=== PATIENT | female | born 1980 | race Caucasian/White ===

== ENCOUNTER 2016-07-09 10:49 | Emergency (ER) | payer OTHER ==
[~2016-07-09] VITALS: Ht 165.1 cm; Wt 84.8 kg
--- NOTE | 2016-07-09 10:50 | NUR ---
Manas redding in EDM - 07/09/16 at 1102 by WESLY Pt placed to ER bed and to norma. Pt report given to JITENDRA Ray.
[2016-07-09 10:56] VITALS: BP 136/88; PULSE 89; RESP 20; TEMP 98.2; O2SAT 100
--- NOTE | 2016-07-09 10:56 | NUR ---
Pt placed to ER bed 07 and to gown. Pt report given to JITENDRA Ray.
--- NOTE | 2016-07-09 10:58 | NUR ---
Dr. Veronica at bedside to assess pt.
--- NOTE | 2016-07-09 11:00 | NUR ---
Pt c/o vag bleed noticed half an hour ago, red blood in toilet and on toilet paper. 10 weeks , G5, P2. 1 miscarriage, 1 . Denies abd pain or cramping. Hx gestational diabetes. Blood sugars run under 120 per pt.
[2016-07-09 11:14] LABS: BILIRUBIN,URINE NEGATIVE (NEGATIVE); BLOOD, URINE 1+ (NEGATIVE); CLARITY/URINE CLEAR (CLEAR); COLOR,URINE YELLOW (YELLOW); GLUCOSE,URINE NEGATIVE (NEGATIVE); KETONES,URINE NEGATIVE (NEGATIVE); LEUKOCYTE ESTERASE ,URINE NEGATIVE (NEGATIVE); NITRITE, URINE NEGATIVE (NEGATIVE); PH,URINE 6.5 (5.0-8.0); PROTEIN URINE NEGATIVE (NEGATIVE); UROBILINOGEN,URINE 0.2 (0.2-1.0)
--- NOTE | 2016-07-09 11:16 | NUR ---
Off unit for ultra sound ambulatory with steady gait accompanied by tech
[2016-07-09 11:18] LABS: BACTERIA,URINE FEW /HPF (None Seen); MUCUS,URINE None Seen /LPF (None Seen); RBC,URINE 0-3 /HPF (0-3); WBC,URINE 0-3 /HPF (0-3)
[2016-07-09 11:29] LABS: BASOPHILS % (AUTO) 0.1 % (0.0-2.0); EOSINOPHILS # (AUTO) 0.2 K/uL (0.0-0.4); EOSINOPHILS % (AUTO) 2.2 % (0.0-4.0); HEMATOCRIT 37.8 % (36-48); HEMOGLOBIN 12.8 g/dL (12.0-16.0); LYMPHOCYTES # (AUTO) 2.2 K/uL (1.0-5.5); LYMPHOCYTES % (AUTO) 23.8 % (20.5-51.5); MEAN CORPUSCULAR HEMOGLOBIN 27 pg (27-31); MEAN CORPUSCULAR HGB CONC 34 % (32-36); MEAN CORPUSCULAR VOLUME 79 fL (79.0-98.0); MONOCYTES # (AUTO) 0.7 K/uL (0.0-1.0); MONOCYTES % (AUTO) 7.2 % (1.7-9.3); NEUTROPHILS % (AUTO) 66.7 % (40.0-70.0); PLATELET COUNT (AUTO) 249 K/uL (130-430); RED CELL DISTRIBUTION WIDTH 12.5 % (9.0-15.0); WHITE BLOOD COUNT (AUTO) 9.1 K/uL (4.8-10.8)
[2016-07-09 11:48] LABS: CALCIUM 9.5 mg/dL (8.4-11.0); CREATININE 0.65 mg/dL (0.55-1.30); POTASSIUM 3.5 mmol/L (3.5-5.1)
[2016-07-09 12:30] VITALS: BP 101/43; PULSE 80; RESP 18; TEMP 98.2; O2SAT 99
--- NOTE | 2016-07-09 12:30 | NUR ---
Patient given written and verbal discharge instructions and verbalizes understanding. ER MD discussed with patient the results and treatment provided. Given copies of tests performed in ER. Patient in stable condition. ID arm band removed. No Rx given. Patient educated on pain management and to follow up with PMD and OBGYN. Pain Scale 0/10. Opportunity for questions provided and answered.
== END 2016-07-09 12:30 | disposition home or self-care (01) ==
LOC: SED 10:49
DX: O02.1 Missed abortion (principal); O21.9 Vomiting of pregnancy, unspecified; Z3A.08 8 weeks gestation of pregnancy
CPT/HCPCS: 36415; 76801; 76817; 80048; 81000-TC; 81025; 84702-TC; 85025; 86901; 99285

== ENCOUNTER 2017-12-16 05:50 | Inpatient (IN) | payer OTHER ==
[~2017-12-16] VITALS: Ht 165.1 cm; Wt 100.2 kg
[2017-12-16] MEDS ORDERED: CEFAZOLIN 2 GM IVPB PREMIX 50 ML IV SCH (06:15)
[2017-12-16] MEDS ORDERED: CEFAZOLIN 2 GM IVPB PREMIX 0 ML IV ONE (06:18)
[2017-12-16 07:13] LABS: BASOPHILS % (AUTO) 0.4 % (0.0-2.0); EOSINOPHILS # (AUTO) 0.2 K/uL (0.0-0.4); EOSINOPHILS % (AUTO) 1.5 % (0.0-4.0); HEMATOCRIT 37.6 % (36-48); HEMOGLOBIN 12.9 g/dL (12.0-16.0); LYMPHOCYTES # (AUTO) 1.9 K/uL (1.0-5.5); MEAN CORPUSCULAR HEMOGLOBIN 27 pg (27-31); MEAN CORPUSCULAR HGB CONC 34 % (32-36); MEAN CORPUSCULAR VOLUME 80 fL (79.0-98.0); MONOCYTES # (AUTO) 0.6 K/uL (0.0-1.0); NEUTROPHILS # (AUTO) 7.6 K/uL (1.8-7.7); NEUTROPHILS % (AUTO) 74.1 % (40.0-70.0); PLATELET COUNT (AUTO) 265 K/uL (130-430); RED BLOOD CELL COUNT(AUTO) 4.71 MIL/uL (4.2-6.2); RED CELL DISTRIBUTION WIDTH 12.5 % (9.0-15.0); WHITE BLOOD COUNT (AUTO) 10.3 K/uL (4.8-10.8)
[2017-12-16] MEDS ORDERED: KETOROLAC TROMETHAMINE 60 MG/2 ML VIAL IM PRN (08:15)
[2017-12-16] MEDS ORDERED: fentaNYL CITRATE/PF 100 MCG/2 ML AMP IVP PRN ×2 (08:15)
[2017-12-16] MEDS ORDERED: MORPHINE SULFATE 10MG/10ML PF AMP SP SCH (08:15)
[2017-12-16] MEDS ORDERED: ONDANSETRON HCL 4 MG/2 ML VIAL IVP PRN ×2 (08:15)
[2017-12-16] MEDS ORDERED: DIPHENHYDRAMINE INJ 50 MG/ML VIAL IVP PRN (08:15)
[2017-12-16] MEDS ORDERED: KETOROLAC TROMETHAMINE 30 MG VIAL IVP PRN (08:15)
[2017-12-16] MEDS ORDERED: NALBUPHINE HCL 10 MG/ML AMP IVP PRN (08:15)
[2017-12-16] MEDS ORDERED: NALOXONE HCL 0.4 MG/ML AMP (NARCAN) IVP PRN ×2 (08:15)
[2017-12-16] MEDS ORDERED: OXYTOCIN/0.9 % SODIUM CHLORIDE 1,000 ML IV ONE ×4 (08:51→21:14)
[2017-12-16] MEDS ORDERED: LR 1,000 ML IV SCH ×2 (08:51→21:14)
[2017-12-16 08:55] VITALS: BP_SYST 106
[2017-12-16] MEDS ORDERED: DIPH-TET-PERTUS Vaccine 0.5 ML VIAL (ADACEL) I.M. PRN (09:00)
[2017-12-16] MEDS ORDERED: BUPIVACAINE /DEX PF 0.75% SPINAL 2 ML AMP INJ ONE (09:00)
[2017-12-16] MEDS ORDERED: RHO(D) IMMUNE GLOBULIN/MALTOSE 1500 UNITS/1.3 ML (WINHRO) IM PRN (09:00)
[2017-12-16] MEDS ORDERED: MORPHINE SULFATE 10MG/10ML PF AMP ONE (09:00)
[2017-12-16] MEDS ORDERED: HYDROcodone/ACETAMIN 5-325 MG TAB (NORCO/ VICODIN) PO PRN (09:00)
[2017-12-16] MEDS ORDERED: NS 1000 ML IV.SOLN IV ONE (09:00)
[2017-12-16] MEDS ORDERED: BISACODYL 10 MG/SUPPOSITORY RC PRN (09:00)
[2017-12-16] MEDS ORDERED: MEASLES,MUMPS&RUBELLA VACC/PF 12500 UNIT/0.5 ML VIAL SUBQ PRN (09:00)
[2017-12-16] MEDS ORDERED: NS 400 ML IV ONE (09:15)
[2017-12-16] MEDS: CEFAZOLIN 1 GM IVPB PREMIX 50 ML IV SCH (13:55)
[2017-12-16] MEDS ORDERED: METHYLERGONOVINE MALEATE 0.2 MG TABLET PO SCH (18:00)
[2017-12-16] MEDS: SIMETHICONE 80 MG TAB.CHEW PO PRN (18:04)
[2017-12-16] MEDS: DOCUSATE SODIUM 100 MG CAPSULE PO PRN (18:04)
[2017-12-16] MEDS: SENNOSIDES/DOCUSATE SODIUM 1 TAB TABLET(SENOKOT-S) PO PRN (18:04)
[2017-12-16] MEDS ORDERED: METHYLERGONOVINE MALEATE 0.2 MG TABLET ONE (18:06)
[2017-12-16] MEDS: KETOROLAC TROMETHAMINE 30 MG VIAL IVP SCH (18:06)
[2017-12-16] MEDS ORDERED: OXYTOCIN 10 UNIT/ML VIAL ONE (20:04)
[2017-12-16] MEDS ORDERED: KETOROLAC TROMETHAMINE 30 MG VIAL ONE (20:35)
[2017-12-16] MEDS ORDERED: TEMAZEPAM 15 MG CAPSULE PO PRN (21:00)
[2017-12-17] MEDS ORDERED: CEFAZOLIN 1 GM IVPB PREMIX 50 ML IV SCH ×2
[2017-12-17] MEDS: KETOROLAC TROMETHAMINE 30 MG VIAL IVP SCH ×2 (00:05→06:01)
[2017-12-17] MEDS: CEFAZOLIN 1 GM IVPB PREMIX 50 ML IV SCH (02:00)
[2017-12-17 06:28] LABS: BASOPHILS % (AUTO) 0.1 % (0.0-2.0); EOSINOPHILS # (AUTO) 0.2 K/uL (0.0-0.4); EOSINOPHILS % (AUTO) 1.9 % (0.0-4.0); HEMATOCRIT 31.5 % (36-48); HEMOGLOBIN 10.8 g/dL (12.0-16.0); LYMPHOCYTES # (AUTO) 1.2 K/uL (1.0-5.5); LYMPHOCYTES % (AUTO) 12.2 % (20.5-51.5); MEAN CORPUSCULAR HEMOGLOBIN 28 pg (27-31); MEAN CORPUSCULAR HGB CONC 34 % (32-36); MEAN CORPUSCULAR VOLUME 81 fL (79.0-98.0); MONOCYTES # (AUTO) 0.5 K/uL (0.0-1.0); MONOCYTES % (AUTO) 4.7 % (1.7-9.3); NEUTROPHILS # (AUTO) 8.2 K/uL (1.8-7.7); NEUTROPHILS % (AUTO) 81.1 % (40.0-70.0); PLATELET COUNT (AUTO) 195 K/uL (130-430); RED BLOOD CELL COUNT(AUTO) 3.91 MIL/uL (4.2-6.2); RED CELL DISTRIBUTION WIDTH 12.6 % (9.0-15.0); WHITE BLOOD COUNT (AUTO) 10.1 K/uL (4.8-10.8)
[2017-12-17] MEDS: DOCUSATE SODIUM 100 MG CAPSULE PO PRN ×2 (12:24→22:46)
[2017-12-17] MEDS: SIMETHICONE 80 MG TAB.CHEW PO PRN ×2 (12:24→22:46)
[2017-12-17] MEDS: SENNOSIDES/DOCUSATE SODIUM 1 TAB TABLET(SENOKOT-S) PO PRN (12:25)
[2017-12-17] MEDS: IBUPROFEN 600 MG TABLET PO SCH ×3 (12:25→23:35)
[2017-12-17] MEDS: OXYCODONE/ACETAMINOPHEN 5-325 TABLET PO PRN ×2 (17:57→22:47)
[2017-12-18] MEDS: IBUPROFEN 600 MG TABLET PO SCH ×4 (05:59→23:58)
[2017-12-18] MEDS: OXYCODONE/ACETAMINOPHEN 5-325 TABLET PO PRN ×3 (06:01→23:59)
[2017-12-18] MEDS: SENNOSIDES/DOCUSATE SODIUM 1 TAB TABLET(SENOKOT-S) PO PRN (12:12)
[2017-12-18] MEDS: DOCUSATE SODIUM 100 MG CAPSULE PO PRN (12:12)
[2017-12-18] MEDS: SIMETHICONE 80 MG TAB.CHEW PO PRN ×2 (12:13→18:08)
[2017-12-19] MEDS: OXYCODONE/ACETAMINOPHEN 5-325 TABLET PO PRN ×2 (04:22→10:52)
[2017-12-19] MEDS: IBUPROFEN 600 MG TABLET PO SCH (06:00)
[2017-12-19] MEDS: DOCUSATE SODIUM 100 MG CAPSULE PO PRN (10:52)
[2017-12-19] MEDS: SIMETHICONE 80 MG TAB.CHEW PO PRN (10:53)
== END 2017-12-19 11:35 | disposition home or self-care (01) | DRG 766 ==
LOC: SPU 05:50
PROVIDERS: ADMIT Specialist; ATTEND Specialist
PROC: 0UL70CZ Occlusion of Bilateral Fallopian Tubes with Extraluminal Device, Open Approach (ICD-10-PCS; 2017-12-16)
PROC: 10D00Z1 Extraction of Products of Conception, Low, Open Approach (ICD-10-PCS; principal; 2017-12-16 07:30)
DX: O34.211 Maternal care for low transverse scar from previous cesarean delivery (principal); O36.63X0 Maternal care for excessive fetal growth, third trimester, not applicable or unspecified; O24.429 Gestational diabetes mellitus in childbirth, unspecified control; Z3A.39 39 weeks gestation of pregnancy; Z37.0 Single live birth; Z30.2 Encounter for sterilization
CPT/HCPCS: 36415; 82947-TC; 85025; 86592; 86886; 86900; 86901; 94760; A4618; J0690; J1885; J2274; J2590; J3490; J7030; J7120